=== PATIENT | male | born 1995 | race Caucasian/White ===

== ENCOUNTER 2019-05-23 11:02 | Emergency (ER) | payer OTHER ==
[~2019-05-23] VITALS: Ht 182.9 cm; Wt 102.1 kg
--- NOTE | 2019-05-23 11:06 | NUR ---
Patient had a witnessed seizure that lasted approximately 2 minutes. Seizure precautions implemented patient kept safe and airway nonobstructed. ERMD made aware.
--- NOTE | 2019-05-23 11:15 | NUR ---
BIB [facility] for c/o s/p unwitnessed "seizure'. Speech is clear, speaks in complete sentences. No acute neuro deficits. Respiratory even and unlabored, no cough no sob. No cardiovascular distress noted, all pulses palpable. Seizure precautions implemented per protocol.
[2019-05-23] MEDS ORDERED: LORAZEPAM 2 MG/1 ML VIAL ONE (11:25)
[2019-05-23] MEDS ORDERED: LORAZEPAM 2 MG/1 ML VIAL IV ONE (11:30)
--- NOTE | 2019-05-23 11:30 | NUR ---
Spoke to Wilbur from [facility], states that he will send someone to flower picker the patient. Patient is medically cleared to go back to facility.
--- NOTE | 2019-05-23 11:48 | NUR ---
Patient picked up by Florentin, caregiver, to go back to facility. Patient discharged to home in stable conditon. Written and verbal after care instructions given. Patient verbalizes understanding of instructions. Patient ambulated with stable gait. IV removed. Catheter intact and site benign. Pressure and 4x4 gauze applied to site. No bleeding noted.
[2019-05-23 11:49] VITALS: BP 128/79
== END 2019-05-23 11:50 | disposition home or self-care (01) ==
LOC: ER 11:04
DX: G40.89 Other seizures (principal); Z88.1 Allergy status to other antibiotic agents
CPT/HCPCS: 96372; 99283; J2060; A4663